=== PATIENT | male | born 1975 | race Caucasian/White ===

== ENCOUNTER → 2019-01-04 | Day surgery (SDC) | payer OTHER ==
[~2019-01-04] MED LIST: ACETAMINOPHEN 1000 MG/100 ML IV ONE; ATROPINE SULFATE 1 MG/ML VIAL ONE; BUPIVACAINE 0.5%/EPI 30 ML SDV INJ ONE; DEXAMETHASONE SOD PHOS INJ 4 MG/ML VIAL ONE; FENTANYL CITRATE/PF 100MCG/2 ML INJ ONE; LIDOCAINE HCL 2% LOCAL INJ 5 ML SDV VIAL INJ ONE; MIDAZOLAM HCL 2 MG/2 ML VIAL ONE; NEOSTIGMINE 5 MG/5ML SYR ONE; ONDANSETRON HCL INJ 2MG/ML 2ML 2 MG/ML VIAL ONE; PROPOFOL IV EMULSION 10 MG/ML 20 ML VIAL ONE; ROCURONIUM BROMIDE 10 MG/ML 5ML VIAL ONE; SEVOFLURANE INHAL SOLN 250 ML PEN BTL ONE
[2019-01-04 09:10] VITALS: BP 126/91
--- NOTE | 2019-01-04 14:19 | Operative Report ---
DATE OF PROCEDURE: 01/04/2019 SURGEON: Desmond Robin MD PREOPERATIVE DIAGNOSIS: Chronic lingual tonsillitis. POSTOPERATIVE DIAGNOSIS: Chronic lingual tonsillitis. OPERATIVE PROCEDURES: Direct laryngoscopy, rigid esophagoscopy, rigid bronchoscopy, biopsy of the midline lingual tonsillectomy. ANESTHESIA: Dr. Garcia. INDICATIONS: This 43-year-old male has 4-5 months of throat pain in the midline posteriorly. The pain was reproduced by palpation of the lingual tonsil area. The patient has been treated with multiple antibiotics by his family physician and myself with no improvement of the condition. CT scan of the neck did not show any abnormality. The problem persists and has been quite irritating to the patient. It was decided that biopsy of the lesion and lingual tonsillectomy and other necessary procedure will be beneficial for him. DESCRIPTION OF PROCEDURE: The patient was taken to the operating room, put under general anesthesia, endotracheally intubated. The rigid esophagoscopy was performed. Esophagoscope was passed through the cricopharyngeus muscle. The esophagus was examined about 25 cm from the incisors, no abnormality was noted. The esophagoscope was retrieved. The rigid bronchoscopy was performed. A size #4 bronchoscope with Fontaine wire was used. The bronchoscope was passed parallel to the endotracheal tube. Endotracheal tube cuff was deflated. Trachea was examined down to the corry. No abnormality was noted. The bronchoscope was retrieved. Endotracheal tube cuff was reinflated. The direct laryngoscopy was performed. The Laureano laryngoscope was used. The oropharynx and oral cavity were examined. Increased lymphoid tissue was noted and lingual tonsil area. The midline lingual tonsil was biopsied and sent for permanent section. The piriform sinus on either side was examined. No abnormality was noted. The larynx was examined. Both the true and false vocal folds were examined. No abnormality was noted. The lingual tonsillectomy was performed. Using the Laureano laryngoscope and a Coblator, the lingual tonsil was systematically shaved down without any problem. Hemostasis was achieved using the coagulation aspect of the Coblator. The patient tolerated the above procedure well with minimal blood loss. He was given 20 mg of Decadron intraoperatively. The patient was able to be transferred to recovery room in stable condition. MD MODESTO Morales/EMANUEL /[id number]
--- NOTE | 2019-01-05 12:26 | Pre Op History & Physical ---
DATE OF SURGERY: January 04, 2019. CHIEF COMPLAINT: Throat pain, chronic; lingual tonsillitis. HISTORY OF PRESENT ILLNESS: This 43-year-old male has a four-month history of throat pain. The patient has no dysphagia, odynophagia, or shortness of breath. The patient has been treated with multiple antibiotics including Z-Ruben by his family physician, Ceftin by myself with no improvement of the condition. CT scan of the neck showed no obvious abnormality. The patient has reproduction of his discomfort in the lingual tonsillar area. The problem has been persistent for the patient. He did use tobacco and he does chew. He stopped about in August 2018. He does drink on the weekends. REVIEW OF SYSTEMS: System review showed no recent cardiovascular, respiratory, or GI problem. PAST MEDICAL HISTORY: The patient has no significant medical problem. PAST SURGICAL HISTORY: He has previous tonsillectomy. ALLERGIES: HE HAS NO KNOWN ALLERGY TO MEDICATIONS. MEDICATIONS: He is on no regular medications. SOCIAL HISTORY: The patient chew tobacco about a can a week. Stopped about in the August 2018 and is a social drinker on the weekend. FAMILY HISTORY: Noncontributory. PHYSICAL EXAMINATION: VITAL SIGNS: On examination, the patient's vital signs were within normal limits. HEENT: Ear exam showed normal tympanic membranes bilaterally. Nasal exam show deviated nasal septum on the right side about 40%. Nasal endoscopy showed the patient has mobile vocal cords bilaterally with no lesion in the hypopharynx. I was able to reproduce the patient discomfort and midline of the lingual tonsil with a flexible laryngoscope. Oropharynx and oral cavity showed no tonsils. Mallampati level 2. NECK: Showed no lymph nodes or thyroid palpable. CHEST: Showed good air entry bilaterally. CARDIOVASCULAR: Showed S1 and S2. No murmur noted. ASSESSMENT AND PLAN: Mr. Cruz has chronic lingual tonsillitis, which has been resistant to conservative therapy. The suggested treatment is panendoscopy with biopsy, lingual tonsillectomy, and other necessary procedure. The complication of procedure includes, but not limited to bleeding, infection, perforation of the esophagus, pneumomediastinum, mediastinitis, airway compromise, persistent recurrence of the problem. The alternative will be continue observation, continue antibiotic therapy, topical nasal steroid therapy, repeat flexible laryngoscopy exam and biopsy in the office setting. The patient has elected to undergo the surgical procedure. MD MODESTO Morales/EMANUEL /[id number]
== END | disposition home or self-care (01) ==
LOC: OR 05:41
PROVIDERS: ATTEND Otolaryngology Otolaryngology/Facial Plastic Surgery
DX: J35.01 Chronic tonsillitis (principal)
CPT/HCPCS: 31535; 31622; 42870; 43191; 88305; 93005; J0131; J0461; J1100; J2001; J2250; J2405; J2704; J3010; 88304